=== PATIENT | male | born 1945 | race Caucasian/White ===

== ENCOUNTER 2016-05-13 23:26 | Emergency (ER) | payer MEDICARE, MEDICAID ==
[~2016-05-13] VITALS: Ht 177.8 cm; Wt 101.7 kg
[~2016-05-13 23:26] MED LIST: AMLO5TAB2 PO; ISOS30TA8 PO; MELA5TAB PO; PANT40TA5 PO
[2016-05-14] MEDS ORDERED: ASPIRIN 81 MG TABLET CHEW ONE (02:12)
[2016-05-14] MEDS ORDERED: LORazepam 1MG TABLET ONE (02:12)
[2016-05-14] MEDS ORDERED: ASPIRIN 81 MG TABLET CHEW PO ONE (02:30)
[2016-05-14] MEDS ORDERED: LORazepam 1MG TABLET PO ONE (02:30)
[2016-05-14 02:49] LABS: BLOOD UREA NITROGEN 33 mg/dL (7-18)
[2016-05-14 03:01] LABS: HEMOGLOBIN 10.7 g/dL (13.7-18.0)
[2016-05-14 03:47] LABS: DIFF TOTAL CELLS COUNTED 100 CELL DIFF
[2016-05-14 03:56] LABS: ANISOCYTOSIS 1+
[2016-05-14 04:09] LABS: VERIFY COUNTS? YES
[2016-05-14 04:10] LABS: POIKILOCYTOSIS 1+; POLYCHROMASIA 1+
[2016-05-14 05:00] VITALS: BP 148/89
== END 2016-05-14 05:11 | disposition home or self-care (01) ==
LOC: ED 05-14 05:05
DX: R07.89 Other chest pain (principal); C91.10 Chronic lymphocytic leukemia of B-cell type not having achieved remission; F43.10 Post-traumatic stress disorder, unspecified
CPT/HCPCS: 36415; 71020; 80048; 82040; 84484; 85025; 85610; 93005

== ENCOUNTER 2016-08-16 03:00 | Emergency (ER) | payer MEDICARE, MEDICAID ==
[2016-08-16] MEDS ORDERED: ASPIRIN 325 MG TABLET ONE (03:54)
[2016-08-16 06:50] LABS: BLOOD UREA NITROGEN 46 mg/dL (7-18); IS PT STATUS REG ER OR PRE ER? YES
[2016-08-16 07:04] LABS: DIFF TOTAL CELLS COUNTED 100 CELL DIFF
[2016-08-16 07:07] LABS: ANISOCYTOSIS 1+; VERIFY COUNTS? YES
[2016-08-16 09:05] VITALS: BP 137/73
== END 2016-08-16 10:01 | disposition home or self-care (01) ==
LOC: ED 05:24
DX: R07.2 Precordial pain (principal)
CPT/HCPCS: 36415; 71010; 78582; 80048; 82040; 83880; 84484; 85025; 85379; 85610; 85730; 93005; 99285; A9540; A9558; C9898

== ENCOUNTER → 2016-08-24 | Outpatient (CLI) | payer MEDICARE, MEDICAID ==
[~2016-08-24] MED LIST changes: -MELA5TAB PO; +MELA5TAB19 PO; +REGADENOSON 0.4 MG/5 ML SYRINGE ONE
== END | disposition home or self-care (01) ==
LOC: CFH 12:41
PROVIDERS: ATTEND Internal Medicine Cardiovascular Disease
DX: I25.9 Chronic ischemic heart disease, unspecified (principal); I10 Essential (primary) hypertension; I45.10 Unspecified right bundle-branch block
CPT/HCPCS: 78452; 93017; A9502; J2785